=== PATIENT | male | born 2000 | race African-American/Black ===

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

== ENCOUNTER 2024-06-12 21:43 | Emergency (ER) | payer SELFPAY ==
[~2024-06-12] VITALS: Ht 185.4 cm; Wt 81.6 kg
[~2024-06-12 21:43] MED LIST changes: +AMOX/K CLAV875 M1 PO; +ONDANSETRON4 MG PO
[2024-06-12 22:31] VITALS: BP 116/72
[2024-06-12] MEDS ORDERED: Diph, Acellular Pertussis, Tet 0.5 ML/VIAL (Tdap) SDV IM ONE (22:35)
[2024-06-12 23:00] VITALS: BP 112/71
[2024-06-12 23:09] VITALS: BP 112/71
== END 2024-06-12 23:09 | disposition home or self-care (01) | DRG 605 ==
LOC: ED 21:43
PROC: 0HQGXZZ Repair Left Hand Skin, External Approach (ICD-10-PCS; principal; 2024-06-12)
DX: S61.211A Laceration without foreign body of left index finger without damage to nail, initial encounter (principal); W26.0XXA Contact with knife, initial encounter; Y93.G1 Activity, food preparation and clean up; Y92.000 Kitchen of unspecified non-institutional (private) residence as the place of occurrence of the external cause
CPT/HCPCS: 90715